=== PATIENT | male | born 1965 | race Caucasian/White ===

== ENCOUNTER 2019-09-22 19:57 | Observation (INO) | payer BC, SELFPAY ==
[2019-09-22 20:05] VITALS: BP 135/72; PULSE 83; RESP 20; TEMP 37.4; O2SAT 100
--- NOTE | 2019-09-22 20:17 | ED_ITS ---
HPI - Abdominal Pain General Chief Complaint: Abdominal Pain Stated Complaint: sent for appendicitis Time Seen by Provider: 09/22/19 20:17 Source: patient Mode of arrival: Ambulatory History of Present Illness HPI narrative: Otherwise healthy 54-year-old gentleman presents with increasing abdominal pain headache anorexia and general malaise over the last 12 hours. When he woke this morning he was feeling some myalgias slight headache pe riumbilical pain. Does not describe a fever respiratory complaints, chest pain, palpitations. He states that he has not had a bowel movement today which is unusual for him also no diarrhea. No dysuria or flank pain. Over the course of today his headache has gotten worse in his periumbilical pain is now localizing to his right lower quadrant. He does not describe significant peritoneal findings while driving in today but is noting that the pain is progressively getting worse throughout the day Review of Systems Review of Systems Narrative: Pertinent positive and negative findings as per HPI Last meal was a piece of toast early this morning. Has been drinking Gatorade all day. Remainder of review of systems is otherwise unremarkable for ENT: No sore throat, neck pain, ear pain CV: Chest pain, palpitations, dyspnea on exertion Respiratory: Cough, wheeze, dyspnea : Dysuria, hematuria, flank pain MS: Muscle weakness, numbness, joint swelling or warmth Skin: Rashes, nonhealing lesions Neuro: Syncope, dizziness, tingling Psych: Depression, anxiety, suicidal ideation Endocrine: Fatigue, heat or cold intolerance, very dry skin Heme: Easy bruising or bleeding Allergy: Seasonal rhinorrhea, itchy eyes Patient History Social History household members: spouse Smoking Status: Never smoker Smoking Status: Never smoker alcohol intake frequency: 0-2 drinks per day Exam Narrative Exam Narrative: General: Healthy appearing, in no acute distress. Able to give a complete and coherent history. Well-nourished well-developed HEENT: Moist mucous membranes, normal sclera with reactive pupils, Neck: No JVD, supple Respiratory: Lungs are clear to auscultation, no wheezing no rales no rhonchi. Full and symmetrical air movement Cardiac: Regular rate and rhythm no murmurs no bruits Abdomen: Soft , no flank pain. Moderate pain in the right lower quadrant without guarding and very mild rebound. Hypoactive bowel tones Skin: Warm and dry, no rashes Neurologic: Grossly neurologically intact with no obvious asymmetries or abnormalities Extremities: No trauma, well perfused Psych: Cooperative, appropriate insight and affect Initial Vital Signs Initial Vital Signs: Vital Signs Temperature 99.3 F 09/22/19 20:05 Pulse Rate 83 09/22/19 20:05 Respiratory Rate 20 09/22/19 20:05 Blood Pressure 135/72 09/22/19 20:05 Pulse Oximetry 100 09/22/19 20:05 Course Orders Ordered: ED Orders 09/22/19 20:19 Complete Blood Count AUTO DIFF Stat Comprehensive Metabolic Panel Stat Lipase Stat 09/22/19 20:30 US abdomen limited Stat Sodium Chloride (Normal Saline 0.9%) 1,000 mls @ 125 mls/hr IV CONT EMILIA Last Admin: 09/22/19 22:56 Dose: 125 mls/hr Documented by: BERNADETTE Piperacillin/Tazobactam/Dextrose (Zosyn) 3.375 gm in 50 mls @ 100 mls/hr IV Q8H [facility] Last Admin: 09/22/19 21:50 Dose: 100 mls/hr Documented by: ARIS Morphine Sulfate (Morphine) 2 mg IV Q4HR PRN PRN Reason: Pain, Moderate (4-6) Ondansetron HCl (Zofran) 4 mg IV Q4HR PRN PRN Reason: Nausea And Vomiting Discontinued Medications Acetaminophen (Tylenol) 975 mg PO NOW ONE Stop: 09/22/19 20:26 Last Admin: 09/22/19 20:39 Dose: 975 mg Documented by: TA Sodium Chloride (Normal Saline 0.9%) 1,000 mls @ 1,000 mls/hr IV BOLUS ONE Stop: 09/22/19 21:24 Last Infusion: 09/22/19 21:51 Dose: 0 mls/hr Documented by: Admin: 09/22/19 20:39 Dose: 1,000 mls/hr Documented by: TA Metoclopramide HCl (Reglan) 10 mg IV NOW ONE Stop: 09/22/19 20:26 Last Admin: 09/22/19 20:40 Dose: 10 mg Documented by: TA Ondansetron HCl (Zofran) 4 mg IV NOW ONE Stop: 09/22/19 20:26 Last Admin: 09/22/19 22:57 Dose: Not Given Documented by: BERNADETTE Vital Signs Vital signs: Vital Signs - 8 hr 09/22/19 20:05 Temperature 99.3 F Pulse Rate 83 Respiratory Rate 20 Blood Pressure 135/72 Pulse Oximetry 100 MDM - Abdominal Pain Medical Records Attestation: I reviewed the patient's medical records. Lab Data Attestation: I reviewed the patient's lab results. Result diagrams: 09/22/19 20:19 09/22/19 20:19 Labs: Lab Results 09/22/19 09/22/19 09/22/19 Range/Units 20:19 20:19 21:35 WBC 13.4 H (4.5-11.0) X10^3/uL RBC 4.44 L (4.5-5.9) X10^6/uL Hgb 13.4 L (13.5-17.5) g/dL Hct 39.9 L (41-53) % MCV 90.0 (80-100) fL MCH 30.1 (26-34) PG MCHC 33.5 (30-36) % RDW 12.7 (11.6-14.8) % Plt Count 216 (150-400) X10^3/uL Neut % (Auto) 80.2 H (50-75) % Lymph % (Auto) 8.8 L (25-40) % [place] % (Auto) 10.6 (3-14) % Eos % (Auto) 0.2 L (2-4) % Baso % (Auto) 0.2 (0-2) % Neut # (Auto) 72468 H (9574-7229) /uL Lymph # (Auto) 1200 (3324-7680) /uL [place] # (Auto) 1400 H (0-900) /uL Eos # (Auto) 0 (0-450) /uL Baso # (Auto) 0 (0-100) /uL Sodium 134 L (137-145) mmol/L Potassium 3.8 (3.4-5.1) mmol/L Chloride 99 (98-107) mmol/L Carbon Dioxide 27 (22-32) mmol/L BUN 8 L (9-20) mg/dL Creatinine 0.68 (0.66-1.25) mg/dL Estimated GFR > 60.0 (>60) mL/min BUN/Creatinine Ratio 11.8 (6-22) Glucose 120 H (70-100) mg/dL Calcium 10.1 (8.4-10.2) mg/dL Total Bilirubin 4.3 H (0.2-1.3) mg/dL AST 29 (17-59) IU/L ALT 26 (<50) IU/L Alkaline Phosphatase 58 (38-126) U/L Total Protein 7.9 (6.3-8.2) g/dL Albumin 4.9 (3.5-5.0) g/dL Globulin 3.0 (1.7-4.1) g/dL Albumin/Globulin Ratio 1.6 (1.0-2.8) Lipase 25 (23-300) U/L COVID-19 PCR Cancelled 09/22/19 Range/Units 21:35 WBC (4.5-11.0) X10^3/uL RBC (4.5-5.9) X10^6/uL Hgb (13.5-17.5) g/dL Hct (41-53) % MCV (80-100) fL MCH (26-34) PG MCHC (30-36) % RDW (11.6-14.8) % Plt Count (150-400) X10^3/uL Neut % (Auto) (50-75) % Lymph % (Auto) (25-40) % [place] % (Auto) (3-14) % Eos % (Auto) (2-4) % Baso % (Auto) (0-2) % Neut # (Auto) (3766-7407) /uL Lymph # (Auto) (6032-7109) /uL [place] # (Auto) (0-900) /uL Eos # (Auto) (0-450) /uL Baso # (Auto) (0-100) /uL Sodium (137-145) mmol/L Potassium (3.4-5.1) mmol/L Chloride (98-107) mmol/L Carbon Dioxide (22-32) mmol/L BUN (9-20) mg/dL Creatinine (0.66-1.25) mg/dL Estimated GFR (>60) mL/min BUN/Creatinine Ratio (6-22) Glucose (70-100) mg/dL Calcium (8.4-10.2) mg/dL Total Bilirubin (0.2-1.3) mg/dL AST (17-59) IU/L ALT (<50) IU/L Alkaline Phosphatase (38-126) U/L Total Protein (6.3-8.2) g/dL Albumin (3.5-5.0) g/dL Globulin (1.7-4.1) g/dL Albumin/Globulin Ratio (1.0-2.8) Lipase (23-300) U/L COVID-19 PCR Negative Point of care testing: Urine Dip Bedside Urine Glucose Negative Bedside Urine Bilirubin - Negative Bedside Urine Ketone - Negative Urine Specific [place] 1.005 Bedside Urine Occult Blood - Negative Bedside Urine pH 6.5 Bedside Urine Protein - Negative Bedside Urine Urobilinogen - Negative Bedside Urine Nitrite - Negative Bedside Urine Leukocytes - Negative Esterase Imaging Data US - abdomen: Radiologist's Impression: architecture technician states that the appendix is enlarged and is in a transverse position completely correlating with his pain MDM Narrative Medical decision making narrative: Positive acute appendicitis with classic history, presentation, labs and ultrasound. Care is reviewed with Dr. Fang. Patient will be admitted overnight and bridging orders are written including pain medication nausea medication and Zosyn. Rapid covid test will be done per or protocols in anticipation of surgery in the morning. Patient is notified of all findings and plans. Questions are answered. Safe for transfer to the floor Discharge Plan Departure Patient Disposition: Home Clinical Impression: Acute appendicitis Qualifiers: Acute appendicitis type: with localized peritonitis Appendicitis gangrene presence: unspecified whether gangrene present Appendicitis perforation presence: unspecified whether perforation present Appendicitis abscess presence: unspecified whether abscess present Qualified Code(s): K35.30 - Acute appendicitis with localized peritonitis, without perforation or gangrene Discharge Date/Time: 09/22/19 22:17 Admit Date/Time: 09/22/19 21:42 Admit Provider: Alexy Fang
[2019-09-22 20:28] LABS: Add Manual Diff / Slide Review NO; Basophils Absolute Auto 0 /uL (0-100); Basophils Percent Auto 0.2 % (0-2); Eosinophils Absolute Auto 0 /uL (0-450); Eosinophils Percent Auto 0.2 % (2-4); Hematocrit 39.9 % (41-53); Hemoglobin 13.4 g/dL (13.5-17.5); Lymphocytes Absolute Auto 1200 /uL (1100-4500); Lymphocytes Percent Auto 8.8 % (25-40); Mean Corpuscular HGB Conc 33.5 % (30-36); Mean Corpuscular Hemoglobin 30.1 PG (26-34); Monocytes Absolute Auto 1400 /uL (0-900); Monocytes Percent Auto 10.6 % (3-14); Neutrophils Absolute Auto 10800 /uL (1500-7000); Neutrophils Percent Auto 80.2 % (50-75); Platelet Count 216 X10^3/uL (150-400); Red Blood Cell Count 4.44 X10^6/uL (4.5-5.9); Red Cell Distribution Width 12.7 % (11.6-14.8); White Blood Cell Count 13.4 X10^3/uL (4.5-11.0)
--- NOTE | 2019-09-22 20:30 | DI.US.S_ITS ---
PROCEDURE: US ABDOMEN LIMITED INDICATIONS: RIGHT LOWER QUADRANT PAIN TECHNIQUE: Real-time focused scanning was performed of the abdomen with attention to the appendix, with image documentation. COMPARISON: None. FINDINGS: Appendix visualization: Partial Appendix measurements: 1.0 cm maximal external dimension Associated findings: Echogenic fat: Absent Appendiceal compressibility: The absent Appendicoliths: Absent Nearby free fluid: Absent Lymphadenopathy: Absence Tenderness on exam: Present IMPRESSION: Acute appendicitis right lower quadrant, abnormal appendiceal dilatation. The appendix is noncompressible. Dictated by: Esvin Franco M.D. on 09/22/2019 at 22:03 Approved by: Esvin Franco M.D. on 09/22/2019 at 22:05
[2019-09-22 20:37] LABS: Alanine Aminotransferase 26 IU/L (<50); Albumin 4.9 g/dL (3.5-5.0); Albumin Globulin Ratio 1.6 (1.0-2.8); Alkaline Phosphatase 58 U/L (38-126); Aspartate Aminotransferase 29 IU/L (17-59); BUN Creatinine Ratio 11.8 (6-22); Bilirubin Total 4.3 mg/dL (0.2-1.3); Blood Urea Nitrogen 8 mg/dL (9-20); Calcium 10.1 mg/dL (8.4-10.2); Carbon Dioxide 27 mmol/L (22-32); Chloride 99 mmol/L (98-107); Estimated Glomerular Filt Rate > 60.0 mL/min (>60); Glucose 120 mg/dL (70-100); HEMOLYSIS < 15 (0-50); Lipase 25 U/L (23-300); Potassium 3.8 mmol/L (3.4-5.1); Sodium 134 mmol/L (137-145); Total Protein 7.9 g/dL (6.3-8.2)
[2019-09-22] MEDS: ACETAMINOPHEN 325 MG TABLET 975 MG PO (20:39)
[2019-09-22] MEDS: SODIUM CHLORIDE 0.9% 1,000 ML 1000 ML IV (20:39)
[2019-09-22] MEDS: METOCLOPRAMIDE 10 MG/2 ML INJ IV (20:40)
[2019-09-22] MEDS: PIPERACILLIN-TAZO 3.375 GM/50 ML FROZ.PIGGY IV (21:50)
[2019-09-22 22:16] VITALS: BP 130/78; PULSE 80; RESP 16; O2SAT 97
[2019-09-22 22:32] VITALS: BP 109/65; PULSE 68; RESP 16; TEMP 36.7; O2SAT 95
[2019-09-22 22:37] LABS: COVID19 -Nasal RAPID Negative (Negative)
[2019-09-22] MEDS: SODIUM CHLORIDE 0.9% 1,000 ML 125 ML IV (22:56)
--- NOTE | 2019-09-22 23:32 | PC.NURSE ---
Report received from ED. Pt. received in acute care at 2220. Pt. ambulatory between stretcher and bed. Reports pain tolerable at 4/10. Denies N/V. VSS. Pt. settled into bed, IVF started. Report given to BRADLEY WHALEY.
[2019-09-22 23:54] VITALS: BMI 25.3
[2019-09-23] VITALS (15 sets, daily range): BP systolic 99–137; BP diastolic 57–93; PULSE 56–77; RESP 11–18; TEMP 35.7–37.3; O2SAT 93–100
--- NOTE | 2019-09-23 | PATH_ITS ---
[facility] Accession Number: [id number] . 01 Material submitted: . appendix - APPENDIX . 02 Diagnosis: Appendix, Appendectomy: Acute suppurative appendicitis with microscopic perforation and serositis. Negative for dysplasia and malignancy. [facility] 09/25/2019 1305 Local . 02 Electronically signed: . Sarah Chavez MD, Pathologist NPI- [id number] . 01 Gross description: . APPENDIX: Received in formalin is a 9.6 cm long appendix with a diameter that ranges from 0.5 cm to 0.9 cm. There is attached abhay-appendiceal fat, 1.5 cm. The serosal surface is rodriguez-brown with light lynn purulent exudate. On sectioning, necrotic debris is absent. Luminal rupture is not evident. The proximal margin is inked. Counseling Program Leader sections are submitted in 3 cassettes. /[facility] 09/24/2019 1112 Local . 02 Pathologist provided ICD-10: K35.20 . 02 CPT . 088445 Performed at: 01 [facility] [address] [id number] MD John Larson MD Phone: [phone] Performed at: 02 [facility] [address] [place], [place] [id number] MD Sarah Chavez MD Phone: [phone]
[2019-09-23] MEDS: MORPHINE 2 MG/ML INJ IV (04:34)
[2019-09-23] MEDS: PIPERACILLIN-TAZO 3.375 GM/50 ML FROZ.PIGGY IV ×2 (05:36→14:09)
[2019-09-23] MEDS: SODIUM CHLORIDE 0.9% 1,000 ML 125 ML IV (08:08)
--- NOTE | 2019-09-23 08:44 | P.HP_ITS ---
History of Present Illness History of Present Illness Date Patient Seen: 09/23/19 Time Patient Seen: 08:45 Chief complaint: sent for appendicitis Narrative: This is a 54-year-old male with acute appendicitis. He developed periumbilical pain yesterday morning which progressively worsened over the course of the day and migrated to the right lower quadrant. He did present to the emergency room last night with where he had a ultrasound demonstrating a noncompressible appendix and a white blood cell count of 13. In no associated fever nausea or diarrhea. He was begun on Zosyn in the emergency room. This morning he did use to complain of right lower quadrant pain. No significant past medical or surgical history. He takes no medications and is a non nonsmok er. Last oral intake was late yesterday morning. Patient History Family & Social History Social History: household members spouse Prior Living Arrangements House Safety & Behavioral: Feels Safe in Current Yes Environment Been Physically Hurt or No Threatened By a Person Suicidal Ideation Description None Tobacco & Substance use: Smoking Status Never smoker alcohol intake frequency 0-2 drinks per day Substance Use Type does not use Review of Systems Review of Systems Narrative: A 10 point review of systems is negative except as noted in the HPI Exam Vital Signs (past 8 hours): - 09/23/19 04:20 Temperature 99.0 F Pulse Rate 72 Respiratory Rate 18 Blood Pressure 126/76 Pulse Oximetry 100 Oxygen Delivery Method Room Air Oxygen Flow Rate 0 Narrative Exam Narrative: General-no acute distress, well nourished HEENT-moist mucous membranes, no scleral icterus Neck-supple, no lymphadenopathy Chest- non labored respirations, clear to auscultation bilaterally Cardiac-regular rate no peripheral edema Abdomen tender right lower quadrant with palpation no peritonitis Extremities-warm, well perfused Neurological-alert and oriented, no focal deficits Objective Labs Result Diagrams: 09/22/19 20:19 09/22/19 20:19 Labs: Laboratory Results - last 24 hr 09/22/19 09/22/19 09/22/19 20:19 20:19 21:35 WBC 13.4 H RBC 4.44 L Hgb 13.4 L Hct 39.9 L MCV 90.0 MCH 30.1 MCHC 33.5 RDW 12.7 Plt Count 216 Neut % (Auto) 80.2 H Lymph % (Auto) 8.8 L [place] % (Auto) 10.6 Eos % (Auto) 0.2 L Baso % (Auto) 0.2 Neut # (Auto) 72457 H Lymph # (Auto) 1200 [place] # (Auto) 1400 H Eos # (Auto) 0 Baso # (Auto) 0 Sodium 134 L Potassium 3.8 Chloride 99 Carbon Dioxide 27 BUN 8 L Creatinine 0.68 Estimated GFR > 60.0 BUN/Creatinine Ratio 11.8 Glucose 120 H Calcium 10.1 Total Bilirubin 4.3 H AST 29 ALT 26 Alkaline Phosphatase 58 Total Protein 7.9 Albumin 4.9 Globulin 3.0 Albumin/Globulin Ratio 1.6 Lipase 25 COVID-19 PCR Cancelled 09/22/19 21:35 WBC RBC Hgb Hct MCV MCH MCHC RDW Plt Count Neut % (Auto) Lymph % (Auto) [place] % (Auto) Eos % (Auto) Baso % (Auto) Neut # (Auto) Lymph # (Auto) [place] # (Auto) Eos # (Auto) Baso # (Auto) Sodium Potassium Chloride Carbon Dioxide BUN Creatinine Estimated GFR BUN/Creatinine Ratio Glucose Calcium Total Bilirubin AST ALT Alkaline Phosphatase Total Protein Albumin Globulin Albumin/Globulin Ratio Lipase COVID-19 PCR Negative Assessment & Plan Assessment and plan (1) Acute appendicitis: Qualifiers: Acute appendicitis type: with localized peritonitis Appendicitis abscess presence: unspecified whether abscess present Appendicitis gangrene presence: unspecified whether gangrene present Appendicitis perforation presence: unspecified whether perforation present Qualified Code(s): K35.30 - Acute appendicitis with localized peritonitis, without perforation or gangrene Current visit: Yes Status: Acute Assessment & Plan narrative: 54-year-old man with acute appendicitis the past 24 hours. He has right lower quadrant pain on exam no peritonitis. I reviewed his ultrasound which demonstrates a noncompressible appendix and his laboratory studies demonstrating a white blood cell count of 13. A laparoscopic appendec aidan is indicated. I discussed the technical nature of the procedure with him the expected postoperative recovery and the risks of the operation including bleeding infection intestinal leak damage to surrounding structures need for conversion to open. His questions have been answered he is in agreement with this plan. Quality VTE Deep Vein Thrombosis/Pulmonary Embolism Present on Admission: No
[2019-09-23] MEDS: ACETAMINOPHEN 325 MG TABLET 650 MG PO ×2 (09:13→20:49)
[2019-09-23] MEDS: OXYCODONE IR 5 MG TABLET PO ×2 (09:13→18:39)
--- NOTE | 2019-09-23 13:50 | CM.DANOTE ---
DCP: Case received, EMR reviewed and met with patient. Introduced self and role. Was able to meet with patient in his room and obtain information regarding his baseline activity level, as well as living situation. DCP assessment completed with information currently available. Patient is a 54 year old male who admitted yesterday evening to the care of the hospitalist team. PCP: Dr. Delfina Limon at [facility]. Payer: confirmed: [facility] Out of [facility]. Patient came to the hospital via family vehicle secondary to periumbilical pain. Patient holds current diagnosis of acute appendicitis. He is scheduled for a laparoscopic appendectomy today. Met with patient in his room. He is alert and oriented. He resides on [place] with his spouse, Michelle. He was up here visiting with family, when he started developing significant abdominal pain. He is planning on surgery today. Confirmed with patient that he is independent at baseline, and he is employed at [employer], in [place]. He has family that live in [place]. P: DCP to continue to follow. He will have surgery today. He should be able to go home when he is medically stable after surgery. Kusum Palencia RN/Social Work Administrator
[2019-09-23] MEDS: LACTATED RINGERS 1,000 ML 42 ML IV ×2 (15:45→18:33)
--- NOTE | 2019-09-23 15:59 | PC.NURSE ---
Addendum entered by Skyla Huber R.N. 09/23/19 23:28: Voiding per urinal. Taking oral foods and fluids well. Pain level 5/10 with ice to site. Medicated as per emar. Encouraged to call for needs. Addendum entered by Skyla Huber R.N. 09/23/19 18:56: Returned to room 215 following surgery awake, alert, conversant. Medicated for postoperative pain by float RN, Eleonora. Pt denies nausea. Taking sips and chips. Dermabond glue to lap sites to abdomen intact. Bowel tones present. Clear breath sounds throughout all lung lopez. Warm blankets for comfort and encouraged to call for needs. Original Note: Pt alert, awake, conversant and transported to O.R. by surgery nursing staff.
[2019-09-23] MEDS: BUPIVACAINE 0.5% (PF) VIAL 30 ML INJ (17:03)
--- NOTE | 2019-09-23 17:56 | PM.OP.1 ---
Operative Date/Time/Diagnoses Date of procedure: 09/23/19 Time of procedure: 17:56 Pre-op diagnosis: Acute appendicitis Post-op diagnosis: same Procedure & Clinicians Procedure: Laparoscopic appendectomy Same procedure as scheduled: Yes Indications: 54-year-old male with acute appendicitis the past 24 hours confirmed by ultrasound Surgeon: Alexy Fang Click Yes if Unassisted: Yes Anesthesia Type: General Operative Notes Findings: Acute non perforated appendicitis Specimen(s): other (Appendix) Estimated Blood Loss (mL): 20 Procedure in detail: Patient was brought to the operating room placed supine on the table. Bilateral lower extremity compression devices were applied. They were induced and intubated with an endotracheal tube. They received 3.375 g of Zosyn prior to skin incision. They were prepped and draped in sterile fashion. Time-out was performed to ensure the correct patient procedure necessary equipment within the operating room. The skin was infiltrated with 0.25% bupivacaine. A infraumbilical incision was made the umbilical stalk was grasped and elevated and incision was made and the abdomen was entered atraumatically. A 12 mm balloon trocar was then placed into the incision and pneumoperitoneum was established. The scope was then inspected abdomen inspected and there was no evidence of injury upon entry. Two 5 mm working ports were then placed supra pubic and in the left lower quadrant. The small bowel was then swept to the upper aspect of the abdomen. The tenie were followed to the base of the cecum where the appendix was identified. It was retrocecal and I mobilize the cecum medially in order to completely expose it by incising the white line of Toldt. The appendix was was mobilized from its lateral attachements.. It was acutely inflamed but not perforated. The appendix was grasped and a window within the mesentery was made. The mesentery to the appendix was taken with the stapler using the vascular staple load, EndoGIA 45mm white load. The appendix was then transected from the cecum at its base using the Endo GI stapler with a blue load. The specimen was removed using the Endo-Catch bag. The abdomen was irrigated and hemostasis was checked and staple lines were carefully inspected. Retroperitoneal surface was raw, there was no discrete source of bleeding after irrigating coopiously. I placed sheet of surgicel over the retroperitoneal surface and hemostasis was observed. The ports were then removed under direct visualization. The umbilical fascial incision was closed with 0 Vicryl in a figure-eight fashion. The skin wounds were irrigated and closed with Monocryl followed by the application of Dermabond. Sponge instrument count at the end of the operation was correct. The patient tolerated procedure well was extubated and transferred to the postoperative care unit in stable condition Complications: none Post-operative Condition: stable Disposition: Acute Care
[2019-09-24] VITALS: O2SAT 95
[2019-09-24] MEDS: OXYCODONE IR 5 MG TABLET PO (01:39)
[2019-09-24 04:00] VITALS: BP 111/60; PULSE 80; RESP 18; TEMP 36.4; O2SAT 93
[2019-09-24] MEDS: ACETAMINOPHEN 325 MG TABLET 650 MG PO (05:19)
--- NOTE | 2019-09-24 07:56 | P.DS_ITS ---
History of Present Illness History of Present Illness Chief complaint: sent for appendicitis Narrative: This is a 54-year-old male with acute appendicitis. He developed periumbilical pain yesterday morning which progressively worsened over the course of the day and migrated to the right lower quadrant. He did present to the emergency room last night with where he had a ultrasound demonstrating a noncompressible appendix and a white blood cell count of 13. In no associated fever nausea or diarrhea. He was begun on Zosyn in the emergency room. This morning he did use to complain of right lower quadrant pain. No significant past medical or surgical history. He takes no medications and is a non nonsmoke r. Last oral intake was late yesterday morning. Discharge Providers Provider Date of admission: 09/22/19 21:42 Discharge Date: 09/24/19 Discharge provider: Alexy Fang MD Summary Hospital Course Discharge Diagnosis: Acute appendicitis Hospital Course: Patient wound underwent a laparoscopic appendectomy 09/23/2019 which demonstrated acute non perforated appendicitis. His period of observation was unremarkable. He tolerated a regular diet without nausea vomiting and he is afebrile pain is well controlled, urinating normally. Status at Discharge Cognitive/behavioral status at discharge: oriented Functional status at discharge: independent ambulation Overall status at discharge: patient is back to baseline Exam Vital Signs (past 8 hours): - 09/24/19 00:00 09/24/19 04:00 Temperature 97.6 F Pulse Rate 80 Respiratory Rate 18 Blood Pressure 111/60 Pulse Oximetry 95 93 Oxygen Delivery Method Room Air Oxygen Flow Rate 0 Narrative Exam Narrative: General adult male alert oriented no acute distress Chest nonlabored respiration Abdomen soft appropriately tender to palpation incisions clean dry intact. Objective Labs Result Diagrams: 09/22/19 20:19 09/22/19 20:19 Discharge Plan Discharge Plan Patient Disposition: Home Discharge orders & Medications Prescriptions: New oxycodone 5 mg tablet 5 mg PO Q6H PRN (Reason: pain) Qty: 30 RF: 0 Follow up/Referrals: Aelxy Fang MD [Physician] - Diet/Activity/Treatments Diet: Regular Activity: No lifting >20 lbs x 4 weeks. Walking only for exercise for 4 weeks[address] while taking narcotics. Skin/Wound/Dressing Care Report to your healthcare provider any signs of infection, such as:: chills, fever, increased pain and unusual drainage Visit Report/Discharge Packet Instructions: DI for an Appendectomy Discharge Data Attending Provider: Alexy Fang Admit Date/Time: 09/22/19 21:42 Quality VTE Deep Vein Thrombosis/Pulmonary Embolism Present on Admission: No
[2019-09-24 08:00] VITALS: O2SAT 98
== END 2019-09-24 10:00 | disposition home or self-care (01) ==
LOC: ED 21:32 → AC 21:43
PROVIDERS: Admitting Provider Surgery; Emergency Provider Emergency Medicine; Referring Provider Surgery; Visit Provider Surgery
PROC: 0DTJ4ZZ Resection of Appendix, Percutaneous Endoscopic Approach (ICD-10-PCS; CPT 44970; principal; 2019-09-23 15:30)
DX: K35.32 Acute appendicitis with perforation, localized peritonitis, and gangrene, without abscess (principal); R10.33 Periumbilical pain; Z11.59 Encounter for screening for other viral diseases
CPT/HCPCS: 44970; 36415; 76705; 80053; 81003; 83690; 85025; 87635; 96361; 96365; 96366; 96374; 96375; 99219; 99284; G0378; J0330; J1100; J2250; J2270; J2405; J2543; J2704; J2765; J3010